=== PATIENT | female | born 1940 | race Caucasian/White ===

== ENCOUNTER 2018-03-15 10:09 | Outpatient (CLI) | payer MEDICARE | END 2018-03-15 10:10 | disposition home or self-care (01) | LOC: BICRAD 10:09 | PROVIDERS: ATTEND Internal Medicine Critical Care Medicine | DX: R91.8 Other nonspecific abnormal finding of lung field (principal) | CPT/HCPCS: 71250 ==

== ENCOUNTER 2018-06-22 15:38 | Outpatient (CLI) | payer MEDICARE ==
--- NOTE | 2018-06-22 23:35 | MRI ---
MRI LUMBAR SPINE WITHOUT CONTRAST 06/22/18 HISTORY: S29.019A, strain of sacroiliac region. Pain radiates down to the leg and to knee for 1.5 months. COMPARISON: None. FINDINGS: Mild prominence of the right renal pelvis. Mild prominence of the left renal pelvis. No retroperitone al adenopathy. The aortic contour is nonaneurysmal. No marrow infiltrative process. The conus medullaris terminates at the mid L1 vertebral body. Levels are as follows: L1-2: Mild facet arthropathy. No neural foraminal or spinal canal narrowing. L2-3: Mild disc desiccation. Circumferential disc bulge. Mild facet arthropathy. The spinal canal oly sures over 1 cm. No significant neural foraminal narrowing. L3-4: Mild disc desiccation. Moderate facet arthrosis as well as fluid within the facet joints bilate rally. Broad based disc bulge causes moderate right and mild left sided neural foraminal narrowing wi th abutment of the exiting right nerve root. The spinal canal is narrowed to approximately 7 mm. L4-5: Moderate degenerative disc space height loss. Circumferential disc osteophyte complex. Moderate bilateral neural foraminal narrowing. Severe facet arthropathy. There is abutment of the exiting and traversing nerve roots bilaterally. The spinal canal measures approximately 8 mm. L5-S1: Mild disc desiccation. The central small disc protrusion. Moderate facet arthropathy. Moderate bilateral neural foraminal narrowing. There is effusions in the bilateral facet joints. IMPRESSION: 1. Moderate spondylosis described above, worse at L3-4, L4-5 and L5-S1. 2. 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 POS: LEESA
== END 2018-06-22 15:39 | disposition home or self-care (01) ==
LOC: MRI 15:38
PROVIDERS: ATTEND Internal Medicine
DX: S39.012A Strain of muscle, fascia and tendon of lower back, initial encounter (principal); M47.896 Other spondylosis, lumbar region; M47.897 Other spondylosis, lumbosacral region; G96.19 Other disorders of meninges, not elsewhere classified
CPT/HCPCS: 72148

== ENCOUNTER 2020-10-21 09:27 | Outpatient (CLI) | payer MEDICARE ==
--- NOTE | 2020-10-21 10:25 | RAD ---
CHEST 2 VIEWS: Date: 10/21/2020 HISTORY: Dyspnea. COMPARISON: Radiograph dated 03/14/2020. FINDINGS: Mild background lung hyperinflation. No confluent air space consolidation, pneumothorax, or effusion. Cardiac silhouette and mediastinal contours are similar. IMPRESSION: No acute intrathoracic abnormality. POS: H
== END 2020-10-21 09:28 | disposition home or self-care (01) ==
LOC: BICRAD 09:27
PROVIDERS: ATTEND Internal Medicine Critical Care Medicine
DX: R06.00 Dyspnea, unspecified (principal)
CPT/HCPCS: 71046

== ENCOUNTER 2023-08-22 10:22 | Outpatient (CLI) | payer MEDICARE | END 2023-08-22 10:23 | disposition home or self-care (01) | LOC: BICRAD 10:22 | PROVIDERS: ATTEND Nurse Practitioner Family | DX: M47.816 Spondylosis without myelopathy or radiculopathy, lumbar region (principal); M25.552 Pain in left hip; M16.12 Unilateral primary osteoarthritis, left hip | CPT/HCPCS: 72120 ==

== ENCOUNTER 2023-12-05 17:36 | Emergency (ER) | payer MEDICARE ==
[2023-12-05] MEDS ORDERED: Morphine 4 MG/ML VIAL ONE (18:32)
[2023-12-05] MEDS ORDERED: Ondansetron PF 4 MG/2 ML Vial ONE (18:32)
[2023-12-05] MEDS ORDERED: Ketorolac Tromethamine 30 MG (1 mL) VIAL ONE (18:46)
[2023-12-05] MEDS ORDERED: Diazepam 10 MG/2 ML SYRINGE ONE (18:46)
== END 2023-12-05 20:33 | disposition home or self-care (01) ==
LOC: ERS 17:36
DX: M54.50 Low back pain, unspecified (principal); F41.9 Anxiety disorder, unspecified; I10 Essential (primary) hypertension; Z55.6 Problems related to health literacy; Z79.899 Other long term (current) drug therapy
CPT/HCPCS: 96374; 96375; J1885; J2270; J2405; J3360

== ENCOUNTER 2023-12-14 08:13 | Observation (INO) | payer MEDICARE ==
[2023-12-13 09:49] VITALS: BMI 19.8
[2023-12-14 09:20] LABS: #Eosinphils 0.1 thou/uL (0.0-0.7); #Monocytes 0.7 thou/uL (0.11-0.59); #Neutrophils 3.5 thou/uL (1.40-6.50); %Basophils 0.6 % (0.0-1.0); %Eosinophils 1.4 % (0.0-10.0); %Lymphocytes 13.2 % (21.0-51.0); %Monocytes 13.8 % (0.0-10.0); %Neutrophils 70.8 % (42.0-75.0); Hematocrit 33.5 % (36.0-47.0); Hemoglobin 11.2 g/dL (12.0-16.0); Mean Corpuscular HGB CONC 33.4 g/dL (32.0-36.0); Mean Corpuscular Hemoglobin 30.8 pg (27.0-31.0); Mean Platelet Volume 10.8 fL (7.4-10.4); Platelet Count 258 10x3/uL (130-400); Red Blood Cell (RBC) Count 3.64 mill/uL (4.20-5.40); White Blood Cell (WBC) Count 4.9 10x3/uL (4.8-10.8)
[2023-12-14 09:34] LABS: Anion Gap 14 mmol/L (10-20); BUN (Urea Nitrogen) 21 mg/dL (9.8-20.1); Calc. Creatinine Clearance 36 mL/min (70-130); Calcium 10.3 mg/dL (7.8-10.44); Carbon Dioxide 24 mmol/L (23-31); Chloride 104 mmol/L (98-107); Estimated GFR 51; Glucose 105 mg/dL (83-110); Potassium 4.7 mmol/L (3.5-5.1); Sodium 137 mmol/L (136-145)
[2023-12-14 09:36] LABS: INR-International Normal Ratio 1.1; Prothrombin Time 13.9 sec (12.0-14.7)
[2023-12-14 09:37] LABS: PTT 29.4 sec (22.9-36.1)
[2023-12-14] MEDS ORDERED: PROPOFOL 20 ML ONE (10:13)
[2023-12-14] MEDS ORDERED: fentaNYL PF 100 MCG/2 ML SYRINGE ONE (10:13)
[2023-12-14] MEDS ORDERED: Vancomycin 1 GM VIAL ONE (10:17)
[2023-12-14] MEDS ORDERED: Thrombin 5000 UNITS/5 ML VIAL ONE ×2 (10:17→12:30)
[2023-12-14] MEDS ORDERED: PHENYLEPHRINE-NS 100 MCG/ML 10 ML SYRINGE ONE ×2 (10:21→10:24)
[2023-12-14] MEDS ORDERED: Rocuronium Bromide 10 MG/ML (10ML VIAL) ONE (10:21)
[2023-12-14] MEDS ORDERED: Lidocaine 1% PF 5 ML VIAL ONE (10:21)
[2023-12-14] MEDS ORDERED: LevoFLOXacin D5W 500 mg (100 mL) BAG ONE (10:22)
[2023-12-14] MEDS ORDERED: Famotidine/PF 20 mg/2ml Vial ONE (10:24)
[2023-12-14] MEDS ORDERED: Phenylephrine 10 MG/ML VIAL ONE (11:40)
[2023-12-14] MEDS ORDERED: Dexamethasone 4 mg/ml Vial ONE (12:10)
[2023-12-14] MEDS ORDERED: Ondansetron PF 4 MG/2 ML Vial ONE (12:10)
[2023-12-14] MEDS ORDERED: HYDROmorphone 2 MG/ML VIAL SLOW IVP PRN (12:11)
[2023-12-14] MEDS ORDERED: Ondansetron HCl/PF 4 MG/2 ML Vial IVP PRN (12:11)
[2023-12-14] MEDS ORDERED: Promethazine HCl 25 MG/ML VIAL IM PRN (12:11)
[2023-12-14] MEDS ORDERED: SUGAMMADEX SODIUM 200 MG/2 ML VIAL ONE (12:24)
[2023-12-14] MEDS ORDERED: fentaNYL 50 mcg/mL 1 mL Vial ONE ×2 (12:52→13:18)
[2023-12-14] MEDS ORDERED: Milk Of Magnesia 30 ML UDCUP PO PRN (13:13)
[2023-12-14] MEDS ORDERED: diphenhydrAMINE 25 MG CAP PO PRN (13:13)
[2023-12-14] MEDS ORDERED: Ondansetron PF 4 MG/2 ML Vial IVP PRN (13:13)
[2023-12-14] MEDS ORDERED: hydrALAZINE 20 MG/ML VIAL SLOW IVP PRN (13:18)
[2023-12-14] MEDS ORDERED: HYDROmorphone 2 MG/ML VIAL ONE (13:27)
[2023-12-14] MEDS ORDERED: Fentanyl 250 MCG/5 ML VIAL ONE (14:01)
[2023-12-14] MEDS ORDERED: Clindamycin/D5W 900 mg/50 ml Premix Bag ONE (15:01)
[2023-12-14] MEDS: Clindamycin/D5W 900 MG in Premix 1 BAG IVPB SCH (15:13)
[2023-12-14] MEDS: Morphine 2 MG/ML VIAL SLOW IVP PRN (16:04)
[2023-12-14] MEDS: Sodium Chloride 0.9% 1,000 ML IV SCH (16:52)
[2023-12-14] MEDS: HYDROcodone/Acetaminophen 7.5/325 mg Tablet PO PRN (17:59)
[2023-12-14] MEDS: tiZANidine HCl 4 MG TAB PO PRN (18:00)
[2023-12-14] MEDS: Atorvastatin Calcium 10 MG TAB PO SCH (21:16)
[2023-12-14] MEDS: traMADol HCl 50 MG TAB PO PRN (21:19)
[2023-12-15 04:17] LABS: #Monocytes 1.1 thou/uL (0.11-0.59); #Neutrophils 9.2 thou/uL (1.40-6.50); %Basophils 0.1 % (0.0-1.0); %Lymphocytes 3.8 % (21.0-51.0); %Monocytes 10.2 % (0.0-10.0); %Neutrophils 85.5 % (42.0-75.0); Hemoglobin 10.4 g/dL (12.0-16.0); Mean Corpuscular HGB CONC 32.5 g/dL (32.0-36.0); Mean Corpuscular Hemoglobin 30.1 pg (27.0-31.0); Mean Corpuscular Volume 92.5 fl (78.0-98.0); Mean Platelet Volume 11.5 fL (7.4-10.4); Platelet Count 257 10x3/uL (130-400); Red Blood Cell (RBC) Count 3.46 mill/uL (4.20-5.40); White Blood Cell (WBC) Count 10.8 10x3/uL (4.8-10.8)
[2023-12-15 04:32] LABS: Anion Gap 11 mmol/L (10-20); BUN (Urea Nitrogen) 20 mg/dL (9.8-20.1); Calc. Creatinine Clearance 40 mL/min (70-130); Calcium 9.3 mg/dL (7.8-10.44); Carbon Dioxide 25 mmol/L (23-31); Chloride 99 mmol/L (98-107); Estimated GFR 59; Glucose 129 mg/dL (83-110); Potassium 4.3 mmol/L (3.5-5.1); Sodium 131 mmol/L (136-145)
[2023-12-15] MEDS: Levothyroxine Sodium 50 MCG TAB PO SCH (05:33)
[2023-12-15] MEDS: Amlodipine 5 MG TAB PO SCH (09:04)
[2023-12-15] MEDS: Valsartan 80 MG TAB PO SCH (09:04)
[2023-12-15] MEDS: Acetaminophen/Codeine 30-300mg Tablet PO PRN (14:01)
[2023-12-15] MEDS: Lorazepam 0.5 MG TAB PO PRN (20:26)
[2023-12-16 06:07] VITALS: TEMP 98.5
[2023-12-16 08:03] VITALS: BP 147/76
[2023-12-16] MEDS: Acetaminophen 325 MG TAB PO PRN (08:57)
== END 2023-12-16 10:10 | disposition home or self-care (01) ==
LOC: SDC 08:13 → SURG A 13:13
PROVIDERS: ADMIT Surgery; ATTEND Surgery
PROC: 01NB0ZZ Release Lumbar Nerve, Open Approach (ICD-10-PCS; principal; 2023-12-14)
PROC: 01NB0ZZ Release Lumbar Nerve, Open Approach (ICD-10-PCS; 2023-12-14)
DX: M48.062 Spinal stenosis, lumbar region with neurogenic claudication (principal); M54.16 Radiculopathy, lumbar region; Z88.0 Allergy status to penicillin
CPT/HCPCS: 63030; 63047; 63048 ×2; 80048 ×2; 85025 ×2; 85610; 85730; 93005; 97110 ×2; 97116 ×2; C1713; J3010; 36415; 93010; J1100; J1170; J1956; J2272; J2371; J2405; J2704; J3370; J3490; S0028